=== PATIENT | male | born 1960 | race Caucasian/White ===

== ENCOUNTER 2018-09-22 10:52 | Emergency (ER) | payer MEDICAID ==
[~2018-09-22] VITALS: Ht 175.3 cm; Wt 72.6 kg
[2018-09-22 10:52] VITALS: BP_SYST 160
[~2018-09-22 10:52] MED LIST: TRAM50TA2 PO
[2018-09-22] MEDS ORDERED: MORPHINE 4 MG/ML INJ. SYRINGE IVP ONE (11:15)
[2018-09-22 14:03] VITALS: BP_SYST 148
== END 2018-09-22 14:03 | disposition home or self-care (01) ==
LOC: SED 10:52
DX: K40.90 Unilateral inguinal hernia, without obstruction or gangrene, not specified as recurrent (principal); E78.00 Pure hypercholesterolemia, unspecified; I10 Essential (primary) hypertension; Z88.1 Allergy status to other antibiotic agents
CPT/HCPCS: 72192; 76856; 93971; 96374; 99284; J2270

== ENCOUNTER 2019-03-28 13:59 | Emergency (ER) | payer MEDICAID ==
[~2019-03-28] VITALS: Ht 175.3 cm; Wt 71.2 kg
[2019-03-28 14:08] VITALS: BP_SYST 162
[2019-03-28] MEDS ORDERED: HYDROcodone/ACETAMIN 5-325 MG TAB (NORCO/ VICODIN) PO ONE (14:30)
[2019-03-28] MEDS ORDERED: IBUPROFEN 600 MG TABLET PO ONE (14:30)
[2019-03-28 16:20] VITALS: BP_SYST 148
== END 2019-03-28 16:20 | disposition home or self-care (01) ==
LOC: SED 13:59
DX: S86.812A Strain of other muscle(s) and tendon(s) at lower leg level, left leg, initial encounter (principal); F17.210 Nicotine dependence, cigarettes, uncomplicated; I10 Essential (primary) hypertension; Z71.6 Tobacco abuse counseling; Z88.1 Allergy status to other antibiotic agents; X50.1XXA Overexertion from prolonged static or awkward postures, initial encounter; Y93.89 Activity, other specified; Y92.89 Other specified places as the place of occurrence of the external cause; Y99.8 Other external cause status
CPT/HCPCS: 73564; 93971; 99284

== ENCOUNTER 2019-10-06 11:42 | Emergency (ER) | payer OTHER, MEDICAID ==
[~2019-10-06] VITALS: Ht 175.3 cm; Wt 72.6 kg
--- NOTE | 2019-10-06 11:45 | NUR ---
Patient to ER bed 04 to gown for evaluation. Side rails up.
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
--- NOTE | 2019-10-06 11:51 | NUR ---
Dr Puga at bedside examining patient
[2019-10-06 11:52] VITALS: BP_SYST 131
[2019-10-06 12:57] VITALS: BP_SYST 131
--- NOTE | 2019-10-06 12:58 | NUR ---
Patient given written and verbal discharge instructions and verbalizes understanding. ER MD discussed with patient the results and treatment provided. Patient in stable condition. ID arm band removed. Rx of Naprosyn given. Patient educated on pain management and to follow up with PMD. Pain Scale 3/10 tolerable for patient . Opportunity for questions provided and answered. Medication side effect fact sheet provided.
[2019-10-06] MEDS ORDERED: IBUPROFEN 600 MG TABLET PO ONE (13:00)
== END 2019-10-06 12:58 | disposition home or self-care (01) ==
LOC: SED 11:42
DX: S42.035A Nondisplaced fracture of lateral end of left clavicle, initial encounter for closed fracture (principal); V89.2XXA Person injured in unspecified motor-vehicle accident, traffic, initial encounter; Y93.89 Activity, other specified; Y92.413 State road as the place of occurrence of the external cause; Y99.8 Other external cause status
CPT/HCPCS: 73030; 99283